=== PATIENT | female | born 1950 | race Caucasian/White ===

== ENCOUNTER 2019-07-08 12:54 | Emergency (ER) | payer MEDICARE, OTHER ==
[~2019-07-08] VITALS: Ht 162.6 cm; Wt 67.1 kg
--- NOTE | 2019-07-08 13:31 | EKG ---
[facility] [address] [facility] [place] [address] Signed Normal sinus rhythm Left bundle branch block Abnormal ECG No previous ECGs available Confirmed by LARS YOUNG MD ([id number] on 07/08/2019 1:31:34 PM Electronically Signed By: LARS YOUNG MD 07/08/19 1331 PATIENT NAME: LAMONT CLARK Electrocardiogram DATE OF : 48 PHYSICIAN: LARS YOUNG MD REPORT #: [id number] REPORT IS CONFIDENTIAL AND NOT TO BE RELEASED WITHOUT AUTHORIZATION
[2019-07-08] MEDS ORDERED: NITROSTAT0.4 MG SL (16:26)
== END 2019-07-08 17:04 | disposition home or self-care (01) ==
LOC: ED 12:54
DX: R07.89 Other chest pain (principal); Z88.8 Allergy status to other drugs, medicaments and biological substances; Z88.5 Allergy status to narcotic agent
CPT/HCPCS: 71045; 80053; 83735; 84484; 85025; 93005; 93010; 99285-25

== ENCOUNTER 2024-05-29 01:55 | Emergency (ER) | payer OTHER, MEDICARE ==
[~2024-05-29] VITALS: Ht 162.6 cm; Wt 62.1 kg
[~2024-05-29 01:55] MED LIST: NITROSTAT0.4 MG SL
[2024-05-29] MEDS ORDERED: fentaNYL citrate 100 MCG/2 ML VIAL IV ONE (02:15)
[2024-05-29 02:17] LABS: BASOPHILS 0.9 % (0-2); EOSINOPHILS 3.1 % (0-6); HEMATOCRIT 41.8 % (35.0-50.0); HEMOGLOBIN 14.8 g/dL (12.0-18.0); LYMPHOCYTES 25.9 % (24-44); MCH 34.5 (27-36); MCHC 35.4 g/dl (30-36); MCV 97.5 fl (81-99); MONOCYTES 5.5 % (0-12); NEUTROPHILS 64.6 % (39-80); PLATELET COUNT 270 K/uL (140-440); RBC 4.29 M/ul (4.3-5.7); RDW 13.3 (10.5-15.0)
[2024-05-29 02:25] LABS: ALBUMIN 3.7 g/dL (3.4-5.0); ALBUMIN/GLOBULIN RATIO 1.06 (1.1-2.4); ANION GAP 14.8 (7-21); BILIRUBIN, TOTAL 0.4 ng/dL (0.2-1.0); BUN/CREATININE RATIO 21.05 (6.0-28.6); CALCIUM 8.9 mg/dL (8.5-10.1); CREATININE, SERUM 0.57 mg/dL (0.55-1.02); POTASSIUM 3.8 mmol/L (3.5-5.1); PROTEIN, TOTAL 7.2 g/dL (6.4-8.2)
[2024-05-29] MEDS ORDERED: MULTIVITAMINS 10 ML,FOLIC ACID 1 MG,THIAMINE HCL 100 MG in SODIUM CHLORIDE 0.9% 1,000 ML IV ONE (02:45)
[2024-05-29] MEDS ORDERED: FOLIC ACID 1 MG/0.2 ML ML ONE (02:58)
[2024-05-29] MEDS ORDERED: DIPHTH,PERTUSS(ACELL),TET VAC 0.5 ML SYRINGE IM ONE (03:00)
[2024-05-29 03:35] LABS: MAGNESIUM 2.2 mg/dL (1.8-2.4)
[2024-05-29 03:56] LABS: ABO O; ANTIBODY SCREEN NEGATIVE; RH POSITIVE
[2024-05-29] MEDS ORDERED: HYDROmorphone HCL 1 MG/ML SYR IV ONE (04:00)
[2024-05-29 04:05] LABS: BILIRUBIN, URINE NEGATIVE (negative); BLOOD/HGB, URINE NEGATIVE (Negative); KETONE, URINE TRACE (Negative); LEUK ESTERASE, URINE NEGATIVE (negative); NITRITE, URINE NEGATIVE (negative)
[2024-05-29 04:10] LABS: AMPHETAMINES, URINE NEGATIVE (NEGATIVE); BARBITURATES, URINE NEGATIVE (NEGATIVE); BENZODIAZEPINE, URINE NEGATIVE (NEGATIVE); BUPRENORPHINE, URINE NEGATIVE (NEGATIVE); CANNABINOID, URINE NEGATIVE (NEGATIVE); COCAINE, URINE NEGATIVE (NEGATIVE); ECSTASY, URINE NEGATIVE (NEGATIVE); FENTANYL, URINE POSITIVE (NEGATIVE); METHADONE, URINE NEGATIVE (NEGATIVE); OPIATES, URINE NEGATIVE (NEGATIVE); OXYCODONE, URINE NEGATIVE (NEGATIVE); PHENCYCLIDINE, URINE NEGATIVE (NEGATIVE)
[2024-05-29] MEDS ORDERED: FAMOTIDINE 20 MG/ 2 ML VIAL IV ONE (04:15)
[2024-05-29] MEDS ORDERED: ondansetron HCL 4 MG/2 ML VIAL IV PRN (04:15)
[2024-05-29] MEDS ORDERED: HYDROmorphone HCL 1 MG/ML SYR IV PRN (04:15)
[2024-05-29 04:57] VITALS: BP 126/60
--- NOTE | 2024-05-29 20:22 | EKG ---
[facility] [address] [facility] [place], [place] [address] Signed Normal sinus rhythm Left bundle branch block Abnormal ECG When compared with ECG of 08-JUL-2019 13:01, T wave inversion now evident in Inferior leads Confirmed by Michelle Lee MD ([id number]) on 05/29/2024 8:22:17 PM Electronically Signed By: MICHELLE LEE MD 05/29/242021 PATIENT NAME: LAMONT CLARK Electrocardiogram DATE OF : 48 PHYSICIAN: MICHELLE LEE MD REPORT #: [id number] REPORT IS CONFIDENTIAL AND NOT TO BE RELEASED WITHOUT AUTHORIZATION
== END 2024-05-29 04:57 | disposition short-term general hospital (02) ==
LOC: ED 01:55
PROVIDERS: Internal Medicine
DX: S12.121A Other nondisplaced dens fracture, initial encounter for closed fracture (principal); F10.929 Alcohol use, unspecified with intoxication, unspecified; Z88.5 Allergy status to narcotic agent; Z79.899 Other long term (current) drug therapy; W01.0XXA Fall on same level from slipping, tripping and stumbling without subsequent striking against object, initial encounter
CPT/HCPCS: 36415; 70450; 72125; 80053; 80307; 81003; 83735; 84484; 85025; 86850; 86900; 86901; 90471; 90715; 93005; 93010; 96365; 96375; 96376; 99285-25; G0480; J1171; J3010; J3411; J7030